=== PATIENT | female | born 1995 | race Two or more races ===

== ENCOUNTER 2018-03-21 17:08 | Emergency (ER) | payer MEDICAID ==
[~2018-03-21] VITALS: Ht 157.5 cm; Wt 66.2 kg
[2018-03-21 17:20] VITALS: BP 127/83
[2018-03-21] MEDS ORDERED: ceFAZolin IM 1GM/2.5ML STERILE WATER IM ONE (18:45)
[2018-03-21] MEDS ORDERED: TETANUS-DIPTH-ACEL PERTUSSIS 0.5ML SYRG IM ONE (18:45)
[2018-03-21] MEDS ORDERED: LIDOCAINE W/ EPINEPHRINE 1 % INJ 30ML ONE (18:50)
[2018-03-21] MEDS ORDERED: cefTRIAXone SOD 1,000 MG VL IM ONE (19:00)
== END 2018-03-21 19:27 | disposition home or self-care (01) ==
LOC: ER 17:18
DX: S60.552A Superficial foreign body of left hand, initial encounter (principal); W34.09XA Accidental discharge from other specified firearms, initial encounter; Y93.89 Activity, other specified; Y92.89 Other specified places as the place of occurrence of the external cause; Y99.8 Other external cause status
CPT/HCPCS: 10120; 73120; 90471; 90715; 96372; 99284; J0690; J0696; J2001